=== PATIENT | male | born 1945 | race Caucasian/White ===

== ENCOUNTER → 2016-08-15 | Outpatient (CLI) | payer OTHER ==
[~2016-08-15] MED LIST: ACIDOPHILUS1 EAC4 PO; ALBUTEROL2.5 MG/0.5 NEB; ALDACTONE 25MG25 MG PO; ASPIR-LOW81 MG PO; ASPIRIN81 MG PO; BRILINTA90 MG PO; BYETTA 1010 MCG/2.4 SC; BYETTA10 MCG/0.0 SQ; COLCHICINE0.6 M1 PO; COLCHICINE0.6 MG PO; FINASTERIDE5 MG PO; FLOMAX 0.4 MG0.4 MG PO; IMDUR ER TAB 3030 MG PO; IPRAT-ALBUT 0.5-3 ML INH; K-TAB ER20 MEQ PO; LASIX40 MG PO; LEVAQUIN250 MG PO; LEVEMIR100 UNIT/1 SC; LEVEMIR100 UNIT/1 SQ; LIPITOR TAB 2020 MG PO; LISINOPRIL5 MG PO; LOPID600 MG PO; LOPRESSOR 25 MG25 MG PO; LOVASTATIN40 MG PO; METOPROLOL SUCC50 MG PO; MULTI COMPLETE1 EACH PO; NORVASC 5 MG TAB5 MG PO; NOVOLOG 10100 UNITS2 SQ; NOVOLOG100 UNIT/1 SC; PLAVIX 75 MG TA75 MG PO; PROTONIX40 MG PO; PROVENTIL HFA 61 INH PO; ROBITUSSIN DM473 ML PO; TYLENOL 325MG325 MG PO; TYLENOL W/CODEIN1 E1 PO; ULORIC 40 MG TA40 MG PO
== END ==
LOC: RT 09:48
DX: R09.02 Hypoxemia (principal)
CPT/HCPCS: 36600; 82803